=== PATIENT | male | born 1975 | race Caucasian/White ===

== ENCOUNTER 2017-08-09 16:29 | Emergency (ER) | payer OTHER ==
[~2017-08-09] VITALS: Ht 175.3 cm; Wt 84.8 kg
[2017-08-09] MEDS ORDERED: LISINOPRIL5 MG PO (16:34)
[2017-08-09 16:59] LABS: ABSOLUTE BASOPHILS 0.1 thou/uL (0.0-0.2); ABSOLUTE EOSINOPHILS 0.1 thou/uL (0.0-0.7); ABSOLUTE LYMPHOCYTES 4.2 thou/uL (0.8-5.3); ABSOLUTE NEUTROPHILS 4.3 thou/uL (1.6-8.1); BASOPHILS 0.6 %; EOSINOPHILS 1.3 %; HEMATOCRIT 44.6 % (42.0-52.0); HEMOGLOBIN 15.6 gm/dL (14.0-18.0); LYMPHOCYTES 43.6 %; MCH 29.7 pg (26.0-34.0); MCV 84.7 fL (80.0-100.0); MONOCYTES 10.3 %; MPV 7.7 fl. (7.2-11.1); NUCLEATED RBCS 0 /100WBC; PLATELET COUNT* 281 thou/uL (150-400); POLYS 44.2 %; RBC 5.27 mil/uL (4.50-6.00); RDW-CV 12.4 % (10.5-14.5); WBC 9.7 thou/uL (4.0-11.0)
[2017-08-09 17:05] LABS: ANION GAP 5 mmol/L (7-16); BUN 15 mg/dL (7-18); CALCIUM 9.2 mg/dL (8.5-10.1); CHLORIDE 103 mmol/L (98-107); CO2 35 mmol/L (21-32); CREATININE 1.2 mg/dL (0.6-1.3); GLUCOSE 74 mg/dL (70-99); POTASSIUM 3.6 mmol/L (3.5-5.1); SODIUM 143 mmol/L (136-145)
[2017-08-09 17:16] LABS: ALBUMIN 4.4 g/dL (3.4-5.0); ALKALINE PHOSPHATASE 113 U/L (46-116); LIPASE 201 U/L (73-393); NT-PRO BRAIN NAT PEPTIDE 31 pg/mL (<300); SGOT 35 U/L (15-37); SGPT 67 U/L (30-65); TOTAL BILIRUBIN 0.6 mg/dL (<0.1-1.0); TROPONIN-I LEVEL <0.06 ng/mL (<0.06)
[2017-08-09 17:42] LABS: INR 1.1
[2017-08-09] MEDS ORDERED: ADULT LOW DOSE81 MG PO (17:51)
[2017-08-09 17:58] VITALS: BP 112/72
--- NOTE | 2017-08-10 16:33 | EKG ---
[place] [address] ELECTROCARDIOGRAM REPORT Name: MANUELA DAVIS Room: [facility]#: [id number] Admission: 08/09/17 Attend Phys: Discharge: 08/09/17 Date of : 79 Report #: [id number] THIS REPORT FOR: //name// [facility] ED Test Date: 2017-08-09 Test Time: 16:32:16 Pat Name: MANUELA DAVIS Department: Room: Gender: Mud Mixer: Fide WEAVER : 1975 Requested By: Dong Galdamez Order Number: [id number] MD: Francisco Soria Measurements Intervals [place] Rate: 65 P: 23 OK: 134 QRS: 83 QRSD: 96 T: -6 QT: 402 QTc: 418 Interpretive Statements Sinus rhythm Borderline repolarization abnormality No previous ECG available for comparison Electronically Signed On 08-10-2017 16:33:43 [employer] by Francisco Soria [email or web address] <ELECTRONICALLY SIGNED> By: Chadd Soria MD, MERGED WITH [facility] 08/10/17 1633 1632 1632 Chadd Soria MD, FACC /EPI
== END 2017-08-09 17:59 | disposition home or self-care (01) ==
LOC: M.ERS 16:29
PROVIDERS: Emergency Medicine
DX: R07.89 Other chest pain (principal); I10 Essential (primary) hypertension; Z88.0 Allergy status to penicillin; Z91.013 Allergy to seafood